=== PATIENT | female | born 1990 | race Caucasian/White ===

== ENCOUNTER 2023-05-20 05:20 | Inpatient (IN) | payer OTHER, SELFPAY ==
[2023-05-20] VITALS (21 sets, daily range): BP systolic 123–145; BP diastolic 64–94; PULSE 67–96; RESP 16–18; TEMP 36.6–36.8
[2023-05-20 06:00] LABS: Hematocrit 39.1 % (36.0-48.0); Hemoglobin 12.9 g/dL (12.0-16.0); Mean Corpuscular Hemoglobin 27.7 pg (26.7-34.0); Mean Corpuscular Volume 83.9 fL (81.0-99.0); Mean Platelet Volume 12.7 fL (9.5-13.5); Platelet Count 212 10^3/uL (150-450); Red Blood Count 4.66 10^6/uL (4.20-5.40); Red Cell Distribution Width 13.3 % (11.0-15.0); White Blood Count 8.2 10^3/uL (4.0-11.0)
[2023-05-20 06:19] LABS: Amphetamine Screen Urine NEGATIVE (NEGATIVE); Barbiturates Screen Urine NEGATIVE (NEGATIVE); Benzodiazepines Screen Urine NEGATIVE (NEGATIVE); Buprenorphine Screen Urine NEGATIVE (NEGATIVE); Cannabinoid Screen Urine NEGATIVE (NEGATIVE); Cocaine Screen Urine NEGATIVE (NEGATIVE); Methadone Screen Urine NEGATIVE (NEGATIVE); Methamphetamines Screen Urine NEGATIVE (NEGATIVE); Opiate Screen Urine NEGATIVE (NEGATIVE); Oxycodone Screen Urine NEGATIVE (NEGATIVE); Phencyclidine Screen Urine NEGATIVE (NEGATIVE); Tricyclic Antidepressant Urine NEGATIVE (NEGATIVE)
[2023-05-20] MEDS: 0.9 % SODIUM CHLORIDE 1,000 ML 1000 ML IV (06:22)
[2023-05-20] MEDS: OXYTOCIN 10 UNIT in 0.9 % SODIUM CHLORIDE 500 ML 6.012 UNIT IV (06:22)
--- NOTE | 2023-05-20 07:57 | W.PC.ACHO ---
Registration Status: ADM IN Primary Language: [place]ican Preferred Language: [place]ican Active Medications Report Given 0720 Generic Name Dose Route Start Last Admin Trade Name Marvq PRN Reason Stop Dose Admin Carboprost Tromethamine 250 mcg 05/20/23 05:24 Carboprost Tromethamine 250 Mcg/Ml 1 Ml Vial IM Q15M PRN Bleeding Sodium Chloride 1,000 mls @ 125 mls/hr 05/20/23 05:30 Sodium Chloride 0.9% 1,000 Ml IV .Q8H FADI Oxytocin 10 unit/ Sodium 501 mls @ 6.012 mls/hr 05/20/23 05:30 05/20/23 06:22 Chloride IV 2 milliunit/min Q24H FADI 6.012 mls/hr Administration 2 MILLIUNIT/MIN Lidocaine 5 ml 05/20/23 05:24 Lidocaine Viscous 2% 15 Ml Topical Solution TOPICAL DIRECTED PRN Pain Lidocaine 1 ml 05/20/23 05:24 Lidocaine Hcl 1% 200 Mg/20 Ml Mdv INJ DIRECTED PRN Pain Methylergonovine Maleate 0.2 mg 05/20/23 05:24 Methylergonovine Maleate 0.2 Mg Tablet PO Q4H PRN Uterine Contractility/Contract Methylergonovine Maleate 0.2 mg 05/20/23 05:24 Methylergonovine Maleate 0.2 Mg/Ml Ampule IM ONCE PRN Uterine Contractility/Contract Misoprostol 600 mcg 05/20/23 05:24 Misoprostol 100 Mcg Tablet PO ONCE PRN Uterine Bleeding Misoprostol 800 mcg 05/20/23 05:24 Misoprostol 100 Mcg Tablet SL ONCE PRN Uterine Bleeding Misoprostol 1,000 mcg 05/20/23 05:24 Misoprostol 100 Mcg Tablet MN ONCE PRN Uterine Bleeding Nalbuphine HCl 10 mg 05/20/23 05:24 Nalbuphine Hcl 10 Mg/Ml Ampule IV Q3H PRN Pain Ondansetron HCl 4 mg 05/20/23 05:24 Ondansetron Pf 4 Mg/2 Ml Vial IV Q6H PRN Nausea And Vomiting Ondansetron HCl 4 mg 05/20/23 05:24 Ondansetron 4 Mg Rapdis Tablet SL Q6H PRN Nausea And Vomiting Oxytocin 10 unit 05/20/23 05:24 Oxytocin 100 Unit/10 Ml Vial IM ONCE PRN Uterine Bleeding Diet Category Date Time Status Regular Consistency Diet Diet 05/20/23 Breakfast Active Consults Category Date Time Status Consult to Anesthesiology Routine Cons 05/20/23 Ordered IV Insertion/Site Date of IV Line Insertion [18g 05/20/23 left Forearm] IV Insertion Time [18g left 05:48 Forearm] Neurology Patient orientation (short person,place,time,situation list) [place] coma scale total score 15 Respiratory Oxygen Delivery Method Room Air Oxygen Delivery Method Room Air Oxygen Delivery Method Room Air Renal Bladder Pattern Continent
[2023-05-20] MEDS: NALBUPHINE HCL 10 MG/ML AMPULE IV (11:16)
[2023-05-20] MEDS: ONDANSETRON 4 MG RAPDIS TABLET SL (11:16)
--- NOTE | 2023-05-20 13:01 | PM.OBPRCVD ---
Procedure Intrapartal events: None Induction method: per pitocin protocol Delivery augmentation: rupture of membranes and pitocin Delivery monitor: external FHT and internal FHT Route of delivery: Episiotomy Description: none Laceration description: none Estimated blood loss (mL): 200 Anesthesia type: None Disposition: floor Delivery date: 05/20/23 Gender: female presentation: vertex Placental delivery description: Spontaneous cord description: 3 Vessels
[2023-05-20] MEDS: IBUPROFEN 600 MG TABLET PO ×2 (14:04→20:48)
[2023-05-20] MEDS: ACETAMINOPHEN 325 MG TABLET 650 MG PO ×2 (15:37→22:10)
--- NOTE | 2023-05-20 19:33 | W.PC.ACHO ---
Registration Status: ADM IN Primary Language: [place] Preferred Language: [place]serratian 0715- Report received from Anabel Hill RN. Active Medications Generic Name Dose Route Start Last Admin Trade Name Mitch PRN Reason Stop Dose Admin Acetaminophen 650 mg 05/20/23 13:02 05/20/23 15:37 Acetaminophen 325 Mg Tablet PO 650 mg Q6H PRN Administration Mild Pain Al Hydroxide/Mg Hydroxide 2,400 mg 05/20/23 13:02 Magnesium Hydroxide 2,400 Mg/10 Ml Oral.Susp PO Q6H PRN Dyspepsia Benzocaine/Menthol 1 applic 05/20/23 13:02 Benzocaine/Menthol 85 Gram Bottle TOPICAL Q3H PRN Pain Carboprost Tromethamine 250 mcg 05/20/23 05:24 Carboprost Tromethamine 250 Mcg/Ml 1 Ml Vial IM Q15M PRN Bleeding Docusate Sodium 100 mg 05/21/23 09:00 Docusate Sodium 100 Mg Capsule PO BID [facility] Sodium Chloride 1,000 mls @ 125 mls/hr 05/20/23 05:30 Sodium Chloride 0.9% 1,000 Ml IV .Q8H [facility] Oxytocin 10 unit/ Sodium 501 mls @ 6.012 mls/hr 05/20/23 05:30 05/20/23 10:00 Chloride IV 2 milliunit/min Q24H [facility] 6.012 mls/hr Infusion 2 MILLIUNIT/MIN Oxytocin 20 unit/ Sodium 1,002 mls @ 125 mls/hr 05/20/23 13:15 05/20/23 13:10 Chloride IV 05/20/23 21:14 125 mls/hr Q8H FADI 125 mls/hr Administration Oxytocin 20 unit/ Sodium 1,002 mls @ 125 mls/hr 05/20/23 13:15 Chloride IV 05/20/23 21:14 Q8H [facility] Protocol Ibuprofen 600 mg 05/20/23 13:02 05/20/23 14:04 Ibuprofen 600 Mg Tablet PO 600 mg Q6H PRN Administration Moderate Pain Lidocaine 5 ml 05/20/23 05:24 Lidocaine Viscous 2% 15 Ml Topical Solution TOPICAL DIRECTED PRN Pain Lidocaine 1 ml 05/20/23 05:24 Lidocaine Hcl 1% 200 Mg/20 Ml Mdv INJ DIRECTED PRN Pain Methylergonovine Maleate 0.2 mg 05/20/23 05:24 Methylergonovine Maleate 0.2 Mg Tablet PO Q4H PRN Uterine Contractility/Contract Methylergonovine Maleate 0.2 mg 05/20/23 05:24 Methylergonovine Maleate 0.2 Mg/Ml Ampule IM ONCE PRN Uterine Contractility/Contract Misoprostol 600 mcg 05/20/23 05:24 Misoprostol 100 Mcg Tablet PO ONCE PRN Uterine Bleeding Misoprostol 800 mcg 05/20/23 05:24 Misoprostol 100 Mcg Tablet SL ONCE PRN Uterine Bleeding Misoprostol 1,000 mcg 05/20/23 05:24 Misoprostol 100 Mcg Tablet AK ONCE PRN Uterine Bleeding Nalbuphine HCl 10 mg 05/20/23 05:24 05/20/23 11:16 Nalbuphine Hcl 10 Mg/Ml Ampule IV 10 mg Q3H PRN Administration Pain Ondansetron HCl 4 mg 05/20/23 05:24 Ondansetron Pf 4 Mg/2 Ml Vial IV Q6H PRN Nausea And Vomiting Ondansetron HCl 4 mg 05/20/23 05:24 05/20/23 11:16 Ondansetron 4 Mg Rapdis Tablet SL 4 mg Q6H PRN Administration Nausea And Vomiting Oxytocin 10 unit 05/20/23 05:24 Oxytocin 100 Unit/10 Ml Vial IM ONCE PRN Uterine Bleeding Senna 17.2 mg 05/20/23 20:00 Sennosides 8.6 Mg Tablet PO QHS PRN Constipation Temazepam 15 mg 05/20/23 20:00 Temazepam 15 Mg Capsule PO BEDTIME PRN Sleep Witch Bettye/Glycerin 1 each 05/20/23 13:02 Glycerin/Witch Bettye 1 Each Jar TOPICAL Q3H PRN Pain Diet Category Date Time Status Regular Consistency Diet Diet 05/20/23 Dinner Active Consults Category Date Time Status Consult to Anesthesiology Routine Cons 05/20/23 Ordered IV Insertion/Site Date of IV Line Insertion [18g 05/20/23 left Forearm] IV Insertion Time [18g left 05:48 Forearm] Neurology Patient orientation (short person,place,time,situation list) [place] coma scale total score 15 [place] coma scale total score 15 Respiratory Oxygen Delivery Method Room Air Oxygen Delivery Method Room Air Oxygen Delivery Method Room Air Cardiology Heart Sounds Regular Renal Bladder Pattern Continent Bladder Pattern Continent
[2023-05-21 01:40] VITALS: BP 130/76; PULSE 77; RESP 14; TEMP 36.2
[2023-05-21 01:43] VITALS: BP 130/76; PULSE 77
[2023-05-21 05:00] VITALS: RESP 16
[2023-05-21] MEDS: IBUPROFEN 600 MG TABLET PO ×2 (05:05→13:18)
[2023-05-21] MEDS: ACETAMINOPHEN 325 MG TABLET 650 MG PO (05:05)
[2023-05-21 05:08] VITALS: BP 127/74; PULSE 67
[2023-05-21 06:22] LABS: Basophils Absolute Auto 0.1 10^3/uL (0.0-0.1); Basophils Percent Auto 0.8 % (0.2-2.0); Eosinophils Absolute Auto 0.2 10^3/uL (0.0-0.7); Eosinophils Percent Auto 2.6 % (0.9-7.0); Hematocrit 34.2 % (36.0-48.0); Hemoglobin 11.3 g/dL (12.0-16.0); Immature Granulocytes Abs Auto 0.03 10^3/uL (0.00-0.03); Immature Granulocytes Pct Auto 0.3 % (0.0-0.5); Lymphocytes Absolute Auto 2.6 10^3/uL (1.2-3.8); Lymphocytes Percent Auto 29.1 % (20.5-60.0); Mean Corpuscular Hemoglobin 27.8 pg (26.7-34.0); Monocytes Absolute Auto 0.6 10^3/uL (0.3-0.8); Monocytes Percent Auto 6.7 % (1.7-12.0); Neutrophils Absolute Auto 5.4 10^3/uL (1.4-6.5); Neutrophils Percent Auto 60.5 % (43.0-75.0); Platelet Count 176 10^3/uL (150-450); Red Blood Count 4.07 10^6/uL (4.20-5.40); Red Cell Distribution Width 13.4 % (11.0-15.0); White Blood Count 8.9 10^3/uL (4.0-11.0)
[2023-05-21 09:30] VITALS: RESP 16; TEMP 36.7
[2023-05-21 09:34] VITALS: BP 121/75; PULSE 70
[2023-05-21] MEDS: DOCUSATE SODIUM 100 MG CAPSULE PO (09:54)
--- NOTE | 2023-05-21 15:14 | PM.OBPN ---
OB - PN: Subj Subjective Patient comments: no complaints Exam Constitutional Vital Signs - 24 hr 05/20/23 21:13 05/21/23 01:43 05/21/23 05:08 Temperature Pulse Rate 67 77 67 Respiratory Rate Blood Pressure 140/82 H 130/76 H 127/74 H Blood Pressure [Right Arm] 05/21/23 09:34 05/20/23 21:00 05/20/23 21:00 Temperature 97.8 F Pulse Rate 70 Respiratory Rate 16 16 Blood Pressure 121/75 H Blood Pressure [Right Arm] 05/21/23 01:40 05/21/23 01:40 05/21/23 05:00 Temperature 97.1 F L Pulse Rate 77 Respiratory Rate 14 14 16 Blood Pressure Blood Pressure [Right Arm] 130/76 H 05/21/23 09:30 Temperature 98.1 F Pulse Rate Respiratory Rate 16 Blood Pressure Blood Pressure [Right Arm] Documenting provider has reviewed patient's vital signs: yes Common normals: no apparent distress Respiratory Common normals: normal respiratory effort and clear to auscultation bilaterally Cardio Common normals: regular rate and regular rhythm GI Common normals: Normal to inspection, nondistended, normoactive bowel sounds present Extremity Common normals: no clubbing, cyanosis or edema and no calf tenderness Results Labs Labs: Short CBC 05/21/23 Range/Units 06:15 WBC 8.9 (4.0-11.0) 10^3/uL Hgb 11.3 L (12.0-16.0) g/dL Hct 34.2 L (36.0-48.0) % Plt Count 176 (150-450) 10^3/uL OB - PN: A/P Plan - Vaginal Delivery day: 1 Plan: routine care, discharge home and follow up 6 weeks Time Spent with Patient Time: Total time spent is greater than 50% in coordination of care (as documented) at patient's floor/unit and/or counseling patient: Total time spent with greater than 50% in coordination of care (as documented) at patient's floor/unit and/or counseling patient: less than 15 minutes
[2023-05-21] MEDS: ADACEL DIPH,PERTUSS(ACELL),TET VAC/PF 0.5 ML ADULT SYRINGE IM (15:28)
== END 2023-05-21 16:30 | disposition home or self-care (01) | DRG 807 ==
PROVIDERS: Admitting Provider Obstetrics & Gynecology; PCP Obstetrics & Gynecology; Visit Provider Obstetrics & Gynecology
DX: O80 Encounter for full-term uncomplicated delivery (principal); Z37.0 Single live birth; Z88.5 Allergy status to narcotic agent; Z3A.39 39 weeks gestation of pregnancy
CPT/HCPCS: 36415; 59050; 59410; 80307; 85025; 85027; 86850; 86900; 86901; 90471; 90715; 96374; 96375; 96376; J2300

== ENCOUNTER 2024-01-03 15:58 | Outpatient (OUT) | payer OTHER, SELFPAY ==
--- NOTE | 2024-01-03 16:01 | US_ITS ---
[address] [address] Patient Name: YOANA MARCELINO MRN: [id number] date: 1990 Sex: F Assigned Patient Location: US Current Patient Location: Accession/Order Number: [id number] Exam Date: 01/03/2024 16:02 Report Date: 01/06/2024 04:07 At the request of: LYLY QUESADA Procedure: US pelvis EXAMINATION: US pelvis HISTORY: abdominal mass, Left Lower Quadrant R19.04 ; palpable lump COMPARISON: Ultrasound pelvis 04/25/2021 TECHNIQUE: Transabdominal and/or transvaginal sonographic examination was performed as indicated by examination type. FINDINGS: UTERUS: Normal size and appearance. Uterus size: 7.9 x 2.9 x 5.5 cm ENDOMETRIUM: Normal homogeneous appearance. Endometrial thickness: 2 mm RIGHT OVARY: Normal size and appearance. Duplex Doppler demonstrates normal waveform and flow; resistive index 0.7. Ovary size: 3.4 x 2.1 x 1.7 cm LEFT OVARY: Normal size and appearance. Duplex Doppler demonstrates normal waveform and flow; resistive index 0.3. Ovary size: 2.7 x 1.7 x 1.7 cm CUL-DE-SAC: Unremarkable. No significant free fluid. BLADDER: Unremarkable. OTHER: None. US/US pelvis IMPRESSION: 1. Normal pelvic ultrasound. No abnormal or suspicious findings to account for patient's palpable lump. Electronically authenticated by: EARLE TERAN Date: 01/06/2024 04:07
== END 2024-01-03 15:59 | disposition home or self-care (01) ==
LOC: US 15:58
PROVIDERS: PCP Family Medicine; Visit Provider Family Medicine
DX: R19.04 Left lower quadrant abdominal swelling, mass and lump (principal)
CPT/HCPCS: 76856

== ENCOUNTER 2024-01-29 12:01 | Outpatient (OUT) | payer OTHER, SELFPAY ==
--- NOTE | 2024-01-29 12:04 | CT_ITS ---
[address] [address] Patient Name: YOANA MARCELINO MRN: [id number] date: 1990 Sex: F Assigned Patient Location: CT Current Patient Location: Accession/Order Number: [id number] Exam Date: 01/29/2024 13:15 Report Date: 01/30/2024 08:12 At the request of: KIM ARAMBULA Procedure: CT abdomen pelvis wo/w con EXAMINATION: CT abdomen pelvis wo/w con HISTORY: left lower quadrant abdominal mass R19.04 COMPARISON: 01/03/2024 ultrasound TECHNIQUE: Axial, Coronal, and Sagittal images were created without and with non-ionic intravenous contrast material. Dose reduction techniques were achieved by using automated exposure control and/or adjustment of mA and/or kV according to patient size and/or use of iterative reconstruction technique. FINDINGS: LUNG BASES: No visible pulmonary or pleural disease. LIVER: No enlargement, atrophy, abnormal density, or significant focal lesion. BILIARY: No dilatation or calcification. PANCREAS: No lesion, fluid collection, ductal dilatation, or atrophy. SPLEEN: No enlargement or focal lesion. ADRENALS: No mass or enlargement. KIDNEYS: No mass, obstruction, or calcification. BOWEL/MESENTERY: No visible mass, obstruction, or bowel wall thickening. Normal appendix AORTA/VASCULAR: No aneurysm or dissection. RETROPERITONEUM: No mass or adenopathy. LYMPH NODES: No adenopathy. URINARY BLADDER: No visible focal wall thickening, lesion, or calculus. PELVIC ORGANS: Hypervascular is uterus and adnexa, correlate with the menstrual cycle. Free pelvic fluid likely physiologic in amount ABDOMINAL WALL: Identified in the region of the patient's palpable abnormality demarcated with the BB marker is a focal subtle area of fat density measuring 3.0 x 0.9 cm best seen on axial image #100 possibly representing a lipoma BONES: No bony lesion or fracture. OTHER: Negative. CT/CT abdomen pelvis wo/w con IMPRESSION: Suspected subcutaneous lipoma corresponding to the patient's left lower quadrant palpable mass Electronically authenticated by: JIGNESH MOE Date: 01/30/2024 08:12
--- OUTSIDE RECORDS SUMMARY | 2024-01-29 12:07 | XMS_ITS | CCD ---
Author Name Unknown Address [address] [facility] [facility] [address] [place] [address] Organization [facility] Care Team Providers Care Wireline Supervisor Name Role Phone Anna Cuetoela Unavailable Lu Quesada Unavailable XU ., DR ALVAREZ Admitting Unavailable PAYAL, DR JIGNESH Rosa Consulting Unavailable XU ., DR ALVAREZ Attending Unavailable QUESADA, DR LU Baker Primary Care Unavailable XU ., DR ALVAREZ Consulting Unavailable XU ., DR ALVAREZ Admitting Unavailable XU ., DR ALVAREZ Attending Unavailable XU ., DR ALVAREZ Consulting Unavailable QUESADA, DR LU Baker Primary Care Unavailable PARUL, DR EARLE Nava Consulting Unavailable XU ., DR ALVAREZ Consulting Unavailable XU ., DR ALVAREZ Admitting Unavailable XU ., DR ALVAREZ Attending Unavailable QUESADA, DR LU Baker Primary Care Unavailable XU ., DR ALVAREZ Admitting Unavailable XU ., DR ALVAREZ Attending Unavailable QUESADA, DR LU Baker Primary Care Unavailable XU ., DR ALVAREZ Consulting Unavailable DIPAK, DR LU Baker Primary Care Unavailable [place], DR JIGNESH Rosa Consulting Unavailable XU ., DR ALVAREZ Admitting Unavailable XU ., DR ALVAREZ Attending Unavailable XU ., DR ALVAREZ Consulting Unavailable XU ., DR ALVAREZ Admitting Unavailable XU ., DR ALVAREZ Attending Unavailable XU ., DR ALVAREZ Consulting Unavailable DIPAK, DR LU Baker Primary Care Unavailable XU ., DR ALVAREZ Admitting Unavailable XU ., DR ALVAREZ Attending Unavailable XU ., DR ALVAREZ Consulting Unavailable DIPAK, DR LU Baker Primary Care Unavailable Jinny Sommers Unavailable Lu Quesada MD Primary Care Provider KIM MCNAIR Attending Unavailable Allergies Allergy Classification Reported Allergen(s) Allergy Type Date of Onset Reaction(s) Facility (11 sources) Codeine Drug Allergy 04-24-2023 Unknown [facility] Work Phone: (1 source) Codeine Drug Allergy 01-09-2016 [facility] Repository Medications Current Medications Medication Drug Class(es) Dates Sig (Normalized) Sig (Original) amoxicillin 875 mg / clavulanate 125 mg oral tablet (5 sources) Penicillin-class Antibacterial Amoxicillin-Pot Clavulanate 875-125 MG Oral for 7 Active b complex vitamins capsule (3 sources) take 1 capsule by mouth in the morning b complex vitamins capsule Take 1 capsule by mouth in the morning. 0 Active calcitriol 0.14430 mg oral capsule (3 sources) Vitamin D3 Analog take 1 capsule by mouth in the morning calcitriol (Rocaltrol) 0.25 MCG capsule Take 0.25 mcg by mouth in the morning. 0 Active calcium acetate 667 mg oral capsule (3 sources) calcium acetate (Phoslo) 667 MG capsule Take 500 mg by mouth in the morning and 500 mg at noon and 500 mg in the evening. Take with meals. 0 Active cefdinir 300 mg oral capsule (1 source) Cephalosporin Antibacterial Start: 11-22-2023 take 1 capsule by mouth every twelve hours Cefdinir 300 MG 1 Capsule Orally bid for 7 days Nov, Active [facility] Fluticasone Propionate 50 MCG/ACT (4 sources) [facility] Fluticasone Propionate 50 MCG/ACT USE 2 SPRAYS IN EACH NOSTRIL DAILY Nasally Once a day for 90 days Active Desiccated Beef Liver powder (3 sources) Desiccated Beef Liver powder fluticasone propionate 0.05 mg/actuat metered dose nasal spray (1 source) Corticosteroid Start: 11-15-2021 take 2 spray(s) nasal route once daily Fluticasone Propionate 50 MCG/ACT 2 sprays Nasally Once a day for 14 day(s) Nov, Active Magnesium glycinate (3 sources) MAGNESIUM GLYCINATE PO Take by mouth. 0 Active predniSONE 20 mg oral tablet (5 sources) Start: 11-15-2021 take 1 tablet by mouth every twelve hours predniSONE 20 MG 1 tablet Orally bid for 5 day(s) Nov, Active MV-Min-Fe Fum-FA-DHA ( 1 PO) (3 sources) MV-Min-Fe Fum-FA-DHA ( 1 PO) Take by mouth. 0 Active Completed/Discontinued Medications Medication Drug Class(es) Dates Sig (Normalized) Sig (Original) norethindrone 0.35 mg oral tablet (3 sources) Start: 09-20-2023 End: 09-19-2024 take 1 tablet by mouth in the morning norethindrone (Micronor) 0.35 MG tablet Indications: 6 weeks follow-up TAKE 1 TABLET (0.35 MG) BY MOUTH IN THE MORNING 84 tablet 4 09/20/2023 01/14/2024 Discontinued (Other) Problems Active Problems Problem Classification Problem Date Documented Da te Episodic/Chronic Abdominal pain (1 source) Pelvic and perineal pain; Translations: [Pelvic and perineal pain] Episodic Diabetes or abnormal glucose tolerance complicating ; childbirth; or the puerperium (4 sources) Abnormal glucose complicating ; Translations: [ABNORMAL GLUCOSE COMP ] Onset: 02-22-2023 Episodic Digestive congenital anomalies (3 sources) Personal history of other specified (corrected) congenital malformations of digestive system; Translations: [History of gastroschisis] Episodic Immunizations and screening for infectious disease (4 sources) Contact with and (suspected) exposure to other viral communicable diseases; Translations: [Encounter for screening for infections with a predominantly sexual mode of transmission] Onset: 11-15-2021 Resolved: 11-15-2021 Episodic Inflammatory diseases of female pelvic organs (1 source) Acute vaginitis; Translations: [Acute vaginitis] Episodic Menstrual disorders (5 sources) Irregular menstruation, unspecified; Translations: [Intermenstrual bleeding - irregular] Onset: 10-29-2022 Chronic Nonmalignant breast conditions (1 source) Mastitis without abscess Episodic Other complications of (3 sources) High risk ; Translations: [Supervision of high risk , unspecified, second trimester] Resolved: 12-30-2017 Episodic Other complications of (1 source) Mental disorders during , childbirth and the puerperium; Translations: [Other mental disorders complicating , unspecified trimester] Episodic Other complications of (1 source) Supervision of high risk with poor obstetric history; Translations: [Supervision of with other poor reproductive or obstetric history, unspecified trimester] Episodic Other ear and sense organ disorders (1 source) Acute actinic otitis externa; Translations: [Acute actinic otitis externa, right ear] Episodic Other gastrointestinal disorders (1 source) Left lower quadrant abdominal swelling, mass and lump Episodic Other gastrointestinal disorders (2 sources) Mass of left lower quadrant of abdomen; Translations: [Left lower quadrant abdominal swelling, mass and lump] 01-14-2024 Episodic Other and delivery including normal (14 sources) Encounter for supervision of normal , unspecified, third trimester; Translations: [Encounter for supervision of normal , unspecified, unspecified trimester] Onset: 01-03-2023 Resolved: 09-23-2019 Episodic Other upper respiratory infections (1 source) Chronic sinusitis; Translations: [Chronic sinusitis, unspecified] Chronic Other upper respiratory infections (2 sources) Acute sinusitis, unspecified; Translations: [Acute upper respiratory infection] Onset: 11-15-2021 Resolved: 11-15-2021 Episodic Otitis media and related conditions (3 sources) Acute secretory otitis media; Translations: [Other acute nonsuppurative otitis media, right ear] Onset: 05-15-2016 Resolved: 09-23-2019 Episodic Residual codes; unclassified (1 source) Gestation period, 38 weeks; Translations: [38 weeks gestation of ] Episodic Residual codes; unclassified (1 source) Gestation period, 34 weeks; Translations: [34 weeks gestation of ] Episodic Residual codes; unclassified (1 source) Gestation period, 36 weeks; Translations: [36 weeks gestation of ] Episodic Residual codes; unclassified (1 source) Gestation period, 30 weeks; Translations: [30 weeks gestation of ] Episodic Residual codes; unclassified (1 source) Gestation period, 32 weeks; Translations: [32 weeks gestation of ] Episodic Residual codes; unclassified (1 source) Gestation period, 25 weeks; Translations: [25 weeks gestation of ] Episodic Residual codes; unclassified (1 source) Gestation period, 28 weeks; Translations: [28 weeks gestation of ] Episodic Residual codes; unclassified (1 source) FH: Congenital anomaly; Translations: [Family history of other congenital malformations, deformations and chromosomal abnormalities] Episodic Residual codes; unclassified (1 source) Gestation period, 21 weeks; Translations: [21 weeks gestation of ] Episodic Syncope (1 source) Syncope and collapse; Translations: [Syncope and collapse] Episodic Past or Other Problems Problem Classification Problem Date Documented Date Episodic/Chronic Malaise and fatigue (1 source) Fatigue; Translations: [Other fatigue] Onset: 03-16-2019 Resolved: 09-23-2019 Episodic Other complications of (1 source) Supervision of high risk with poor reproductive history; Translations: [Supervision of with other poor reproductive or obstetric history, third trimester] Resolved: 12-30-2017 Episodic Other complications of (1 source) Complication occurring during ; Translations: [Other specified related conditions, second trimester] Resolved: 09-23-2019 Episodic Other complications of (1 source) Maternal care for excessive growth, unspecified trimester, not applicable or unspecified; Translations: [Maternal care for excessive growth, unspecified trimester, not applicable or unspecified] Resolved: 01-25-2020 Episodic Other female genital disorders (1 source) Other specified noninflammatory disorders of vagina; Translations: [OTH SPEC NONINFLAMMATORY D/O VAGINA] Onset: 01-30-2023 Episodic Other screening for suspected conditions (not mental disorders or infectious disease) (10 sources) Encounter for screening for diabetes mellitus; Translations: [Encounter for other screening follow-up] Onset: 01-28-2023 Resolved: 01-20-2020 Episodic Residual codes; unclassified (1 source) Gestation period, 37 weeks; Translations: [37 weeks gestation of ] Resolved: 01-20-2020 Episodic Residual codes; unclassified (1 source) Gestation period, 13 weeks; Translations: [13 weeks gestation of ] Resolved: 09-23-2019 Episodic Residual codes; unclassified (1 source) Gestation period, 17 weeks; Translations: [17 weeks gestation of ] Resolved: 09-23-2019 Episodic Residual codes; unclassified (1 source) Other specified health status; Translations: [Health status] Resolved: 09-23-2019 Episodic Residual codes; unclassified (3 sources) H/O: stillbirth; Translations: [Personal history of other complications of , childbirth and the puerperium] Onset: 05-09-2023 Resolved: 05-09-2023 05-09-2023 Episodic Unclassified (1 source) Supervision of high risk ; Translations: [Supervision of other high-risk ] Unclassified (1 source) Acute candidiasis of vulva and vagina; Translations: [Acute candidiasis of vulva and vagina] Results Test Name Value Interpretation Reference Range Facility GROUP B STREP CULTUREon 04-02 S. agalactiae Ag Ql (Unsp spec) Culture Observations: NEGATIVE FOR GROUP B STREPTOCOCCUS. Normal [facility] Comment on above: Performed By: #### H BSANS #### [facility] [address] [place] [address] Dr. Cosme Hinojosa GTT 3 HR PREGon 02-22-2023 Glucose [Mass/Vol] 100 mg/dL Normal 74-106 [facility] Comment on above: Performed By: #### G TT3P #### [facility] [address] [place] [address] Dr. Cosme Hinojosa Glucose [Mass/Vol] 175 mg/dL Normal [facility] Comment on above: Performed By: #### G TT3P #### [facility] [address] [place] [address] Dr. Cosme Hinojosa Glucose [Mass/Vol] 129 mg/dL Normal [facility] Comment on above: Performed By: #### G TT3P #### [facility] [address] [place] [address] Dr. Cosme Hinojosa Glucose [Mass/Vol] 116 mg/dL Normal [facility] Comment on above: Performed By: #### G TT3P #### [facility] [address] [place] [address] Dr. Cosme Hinojosa POINT OF CARE GLUCOSEon 01-31 Glucose [Mass/Vol] 107 mg/dL Critically high 74-106 [facility] Comment on above: Performed By: #### H BSANS #### [facility] [address] [place] [address] Dr. Cosme Hinojosa CBC AUTO DIFFon 02-16-2023 BASO # 0.0 103/ul Normal 0.0-0.1 [facility] Comment on above: Performed By: #### C BC #### [facility] [address] [place] [address] Dr. Cosme Hinojosa Basophils/100 WBC (Bld) 0.3 % Normal 0.2-2.0 [facility] Comment on above: Performed By: #### C BC #### [facility] [address] [place] [address] Dr. Cosme Hinojosa EO # 0.2 103/ul Normal 0.0-0.7 [facility] Comment on above: Performed By: #### C BC #### [facility] [address] [place] [address] Dr. Cosme Hinojosa Eosinophils/100 WBC (Bld) 3.2 % Normal 0.9-7.0 [facility] Comment on above: Performed By: #### C BC #### [facility] [address] [place] [address] Dr. Cosme Hinojosa Erythrocyte distribution width (RBC) [Ratio] 13.1 % Normal 11.0-15.0 [facility] Comment on above: Performed By: #### C BC #### [facility] [address] [place] [address] Dr. Cosme Hinojosa Hematocrit (Bld) [Volume fraction] 35.8 % Critically low 36.0-48.0 [facility] Comment on above: Performed By: #### C BC #### [facility] [address] [place] [address] Dr. Cosme Hinojosa Hemoglobin (Bld) [Mass/Vol] 11.9 g/dL Critically low 12.0-16.0 [facility] Comment on above: Performed By: #### C BC #### [facility] [address] [place] [address] Dr. Cosme Hinojosa IG # 0.02 10e3/ul Normal 0.00-0.03 [facility] Comment on above: Performed By: #### C BC #### [facility] [address] [place] [address] Dr. Cosme Hinojosa IG % 0.3 % Normal 0.0-0.5 [facility] Comment on above: Performed By: #### C BC #### [facility] [address] [place] [address] Dr. Cosme Hinojosa LYMPH # 1.2 103/ul Normal 1.2-3.8 [facility] Comment on above: Performed By: #### C BC #### [facility] [address] [place] [address] Dr. Cosme Hinojosa Lymphocytes/100 WBC (Bld) 21.1 % Normal 20.5-60.0 [facility] Comment on above: Performed By: #### C BC #### [facility] [address] [place] [address] Dr. Cosme Hinojosa MANUAL DIFF REQ NO Normal [facility] Comment on above: Performed By: #### C BC #### [facility] [address] [place] [address] Dr. Cosme Hinojosa MCH (RBC) [Entitic mass] 28.5 pg Normal 26.7-34.0 [facility] Comment on above: Performed By: #### C BC #### [facility] [address] [place] [address] Dr. Cosme Hinojosa MCHC (RBC) [Mass/Vol] 33.2 g/dL Normal 29.9-35.2 [facility] Comment on above: Performed By: #### C BC #### [facility] [address] [place] [address] Dr. Cosme Hinojosa MCV (RBC) [Entitic vol] 85.9 fL Normal 81.0-99.0 [facility] Comment on above: Performed By: #### C BC #### [facility] [address] [place] [address] Dr. Cosme Hinojosa MONO # 0.4 103/ul Normal 0.3-0.8 [facility] Comment on above: Performed By: #### C BC #### [facility] [address] [place] [address] Dr. Cosme Hinojosa Monocytes/100 WBC (Bld) 6.1 % Normal 1.7-12.0 [facility] Comment on above: Performed By: #### C BC #### [facility] [address] [place] [address] Dr. Cosme Hinojosa NEUT # 4.1 103/ul Normal 1.4-6.5 [facility] Comment on above: Performed By: #### C BC #### [facility] [address] [address] [address] Cosme Hinojosa Neutrophils/100 WBC (Bld) 69.0 % Normal 43.0-75.0 [facility] Comment on above: Performed By: #### C BC #### [facility] [address] [address] [address] Cosme Hinojosa Platelet mean volume (Bld) [Entitic vol] 11.1 fL Normal 9.5-13.5 [facility] Comment on above: Performed By: #### C BC #### [facility] [address] [place] [address] Dr. Cosme Hinojosa PLT 206 103/ul Normal 150-450 [facility] Comment on above: Performed By: #### C BC #### [facility] [address] [place] [address] Dr. Cosme Hinojosa RBC 4.17 106/ul Critically low 4.20-5.40 [facility] Comment on above: Performed By: #### C BC #### [facility] [address] [place] [address] Dr. Cosme Hinojosa WBC 5.9 103/ul Normal 4.0-11.0 [facility] Comment on above: Performed By: #### C BC #### [facility] [address] [place] [address] Dr. Cosme Hinojosa GLUCOSE - 1HRon 02-16-2023 Glucose [Mass/Vol] 148 mg/dL Critically high 74-106 [facility] Comment on above: Performed By: #### H BSANS #### [facility] [address] [address] [address] Cosme Hinojosa US PREG INCOMPLETE ANATOMYon 02-16-2023 US PREG INCOMPLETE ANATOMY EXAMINATION: US PREG INCOMPLETE ANATOMY HISTORY: screening COMPARISON: 01/03/2023 FINDINGS: position: Breech presentation, longitudinal lie Amniotic fluid volume: Subjectively normal Heart rate: 140 bpm Normal observed anatomy: Three-vessel cord, four-chamber heart, RVOT, LVOT Clinical age: 26 weeks 3 days Clinical KATY: 05/22/2023 IMPRESSION: Normal observed anatomy Electronically authenticated by: JIGNESH MOE Date: 2023-02-16 11:40 Normal [facility] PAP ACOG PANEL 2: 30 to 65on 02-04-2023 . . Normal [facility] Comment on above: Result Comment: Perf ormed at: WB Performed By: #### [id number] #### [facility] [address] [place] [address] Dr. Cosme Hinojosa Age Gdln ACOG Testing 30-65 Normal [facility] Comment on above: Performed By: #### [id number] #### [facility] [address] [place] [address] Dr. Cosme Hinojosa DIAGNOSIS: Comment Normal [facility] Comment on above: Result Comment: NEGA TIVE FOR INTRAEPITHELIAL LESION OR MALIGNANCY. Performed at: WB Performed By: #### [id number] #### [facility] [address] [place] [address] Dr. Cosme Hinojosa HPV Aptima Negative Normal Negative [facility] Comment on above: Result Comment: This nucleic acid amplification test detects fourteen high-risk HPV types (16,18,31,33,35,39,45,51,52,56,58,59,66,68) without differentiation. Performed at: =G Performed By: #### 4 [id number] #### [facility] [address] [place] [address] Dr. Cosme Hinojosa HPV Genotype Reflex Comment Normal [facility] Comment on above: Result Comment: Crit eria not met, HPV Genotype not performed. Performed at: WB Performed By: #### [id number] #### [facility] [address] [address] [address] Cosme Hinojosa Methodology: Comment [facility] Comment on above: Result Comment: This liquid based ThinPrep(R) pap test was screened with the use of an image guided system. Performed at: WB Performed By: #### [id number] #### [facility] [address] [place] [address] Dr. Cosme Hinojosa Note: Comment Normal [facility] Comment on above: Result Comment: The Pap smear is a screening test designed to aid in the detection of premalignant and malignant conditions of the uterine cervix. It is not a diagnostic procedure and should not be used as the sole means of detecting cervical cancer. Both false-positive and false-negative reports do occur. . Performed at: WB Performed By: #### [id number] #### [facility] [address] [place] [address] Dr. Cosme Hinojosa Performed by: Comment Normal [facility] Comment on above: Result Comment: Abner Gaston, Telephonic Nurse Case Manager (ASCP) Performed at: WB Performed By: #### [id number] #### [facility] [address] [place] [address] Dr. Cosme Hinojosa Specimen adequacy: Comment Normal [facility] Comment on above: Result Comment: Sati sfactory for evaluation. No endocervical component is identified. Performed at: WB Performed By: #### [id number] #### [facility] [address] [place] [address] Dr. Cosme Hinojosa CHLAMYDIA/GONOCOCCUS LEWIS (SW AB/URINE/PAPon 01-31-2023 Chlamydia trachomatis, LEWIS Negative Normal Negative [facility] Comment on above: Performed By: #### H BSANS #### [facility] [address] [place] [address] Dr. Cosme Hinojosa Neisseria gonorrhoeae, LEWIS Negative Normal Negative [facility] Comment on above: Performed By: #### H BSANS #### [facility] [address] [place] [address] Dr. Cosme Hinojosa VAGINITIS/VAGINOSIS DNA PROB Josh 01-30-2023 Emeli species Negative Normal Negative [facility] Comment on above: Performed By: #### V AGINT #### [facility] [address] [place] [address] Dr. Cosme Hinojosa Gardnerella vaginalis Positive Abnormal Negative [facility] Comment on above: Performed By: #### V AGINT #### [facility] [address] [place] [address] Dr. Cosme Hinojosa Trichomonas vaginalis Negative Normal Negative [facility] Comment on above: Performed By: #### V AGINT #### [facility] [address] [place] [address] Dr. Cosme Hinojosa US PREG ANATOMY SINGLEon US PREG ANATOMY SINGLE EXAMINATION: US PREG ANATOMY SINGLE HISTORY: anatomy study COMPARISON: No relevant comparison available. TECHNIQUE: Transabdominal sonographic examination was performed for obstetrical and evaluation. FINDINGS: Number: 1 Heart Rate: 149.0 bpm H.B. /min position: Variable Amniotic Fluid Volume: Subjectively normal Placental Location: Posterior. Placental edge 3.6 cm levels. Placental grade 0 Cervix Length: 4.7 cm, closed Normally visualized anatomy: Cerebellum, choroid plexus, cisterna magna, lateral cerebral ventricles, orbits, midline falx, hard palate, stomach, kidneys, bladder, umbilical cord insertion into the abdomen, cervical spine, thoracic spine, lumbar spine, sacral spine, right upper extremity, left upper extremity, right lower extremity, left lower extremity Suboptimally, nonvisualized anatomy: Four-chamber heart, RVOT, LVOT and three-vessel cord BIOMETRY: BPD: 4.6 cm 20 weeks 0 days , 41% HC: 17.6 cm 20 weeks 0 days, 30% AC: 14.6 cm 19 weeks 6 days, 36% FL: 3.5 cm 21 weeks 0 days, 71% EFW:348.2 grams; 12 ounces, 57% FL/AC: 23.8 FL/BPD: 75.5 HC/AC: 1.2 GESTATIONAL AGE: Age by EDC: 20 weeks 1 days KATY by EDC: 05/22/2023 Age by current US: 20 weeks 2 days KATY by current US: 05/21/2023 IMPRESSION: Suboptimal visualization is detailed above, otherwise normal anatomy scan *Reference: [employer] Practice Guideline for the performance of Obstetric Ultrasound Examinations, September 01, 2007. Electronically authenticated by: JIGNESH MOE Date: 2023-01-03 17:10 Normal [facility] RUBELLA AB IGGon 11-01-2022 Rubella Antibodies, IgG 1.36 index Normal Immune >0.99 [facility] Comment on above: Result Comment: Non- immune <0.90 Equivocal 0.90 - 0.99 Immune >0.99 Performed By: #### R UBIGG #### [facility] [address] [address] [address] Cosme Hinojosa HEP B SURFACE ANTIGEN SCREEN on 10-30-2022 HBsAg Screen Negative Normal Negative [facility] Comment on above: Performed By: #### H BSANS #### [facility] [address] [address] [address] Cosme Hinojosa HEPATITIS C VIRUS AB W/ REFL EX QUANTon 10-30-2022 HCV AB 0.4 s/co ratio Normal 0.0-0.9 [facility] Comment on above: Performed By: #### H BSANS #### [facility] [address] [place] [address] Dr. Cosme Hinojosa Interpretation: Comment Normal [facility] Comment on above: Result Comment: Nega tive Not infected with HCV, unless recent infection is suspected or other evidence exists to indicate HCV infection. Performed By: #### H BSANS #### [facility] [address] [place] [address] Dr. Cosme Hinojosa HIV 1 AND 2 WITH REFLEXon HIV Screen 4th Generation wRfx Non-Reactive Normal Non Reactive [facility] Comment on above: Result Comment: HIV Negative HIV-1/HIV-2 antibodies and HIV-1 p24 antigen were NOT detected. There is no laboratory evidence of HIV infection. Performed By: #### H IV12 #### [facility] [address] [place] [address] Dr. Cosme Hinojosa RPR QUANTon 10-30-2022 Rapid Plasma Reagin, Quant Non-Reactive Normal NonRea<1:1 [facility] Comment on above: Result Comment: Plea se Note: This test does not meet current guidelines for screening and diagnosis of syphilis. This test is intended for following treatment response in patients being treated for syphilis infection. To screen for syphilis infection, a reflex cascade that includes both RPR and a treponema-specific assay should be utilized, such as Treponema pallidum (Syphilis) Screening Reagan (576304) or Rapid Plasma Reagin (RPR) Test With Reflex to Quantitative RPR and Confirmatory Treponema pallidum Antibodies (584620). Performed By: #### R PRQ #### [facility] [address] [address] [address] Cosme Hinojosa CBC AUTO DIFFon 10-29-2022 BASO # 0.1 103/ul Normal 0.0-0.1 [facility] Comment on above: Performed By: #### C BC #### [facility] [address] [place] [address] Dr. Cosme Hinojosa Basophils/100 WBC (Bld) 1.0 % Normal 0.2-2.0 [facility] Comment on above: Performed By: #### C BC #### [facility] [address] [place] [address] Dr. Cosme Hinojosa EO # 0.5 103/ul Normal 0.0-0.7 [facility] Comment on above: Performed By: #### C BC #### [facility] [address] [place] [address] Dr. Cosme Hinojosa Eosinophils/100 WBC (Bld) 8.2 % Critically high 0.9-7.0 [facility] Comment on above: Performed By: #### C BC #### [facility] [address] [place] [address] Dr. Cosme Hinojosa Erythrocyte distribution width (RBC) [Ratio] 12.6 % Normal 11.0-15.0 [facility] Comment on above: Performed By: #### C BC #### [facility] [address] [place] [address] Dr. Cosme Hinojosa Hematocrit (Bld) [Volume fraction] 39.4 % Normal 36.0-48.0 [facility] Comment on above: Performed By: #### C BC #### [facility] [address] [place] [address] Dr. Cosme Hinojosa Hemoglobin (Bld) [Mass/Vol] 13.4 g/dL Normal 12.0-16.0 [facility] Comment on above: Performed By: #### C BC #### [facility] [address] [place] [address] Dr. Cosme Hinojosa IG # 0.02 10e3/ul Normal 0.00-0.03 [facility] Comment on above: Performed By: #### C BC #### [facility] [address] [place] [address] Dr. Cosme Hinojosa IG % 0.3 % Normal 0.0-0.5 [facility] Comment on above: Performed By: #### C BC #### [facility] [address] [place] [address] Dr. Cosme Hinojosa LYMPH # 1.6 103/ul Normal 1.2-3.8 [facility] Comment on above: Performed By: #### C BC #### [facility] [address] [place] [address] Dr. Cosme Hinojosa Lymphocytes/100 WBC (Bld) 27.7 % Normal 20.5-60.0 [facility] Comment on above: Performed By: #### C BC #### [facility] [address] [place] [address] Dr. Cosme Hinojosa MANUAL DIFF REQ NO Normal [facility] Comment on above: Performed By: #### C BC #### [facility] [address] [place] [address] Dr. Cosme Hinojosa MCH (RBC) [Entitic mass] 28.0 pg Normal 26.7-34.0 [facility] Comment on above: Performed By: #### C BC #### [facility] [address] [place] [address] Dr. Cosme Hinojosa MCHC (RBC) [Mass/Vol] 34.0 g/dL Normal 29.9-35.2 [facility] Comment on above: Performed By: #### C BC #### [facility] [address] [place] [address] Dr. Cosme Hinojosa MCV (RBC) [Entitic vol] 82.4 fL Normal 81.0-99.0 [facility] Comment on above: Performed By: #### C BC #### [facility] [address] [place] [address] Dr. Cosme Hinojosa MONO # 0.4 103/ul Normal 0.3-0.8 [facility] Comment on above: Performed By: #### C BC #### [facility] [address] [place] [address] Dr. Cosme Hinojosa Monocytes/100 WBC (Bld) 6.3 % Normal 1.7-12.0 [facility] Comment on above: Performed By: #### C BC #### [facility] [address] [place] [address] Dr. Cosme Hinojosa NEUT # 3.3 103/ul Normal 1.4-6.5 [facility] Comment on above: Performed By: #### C BC #### [facility] [address] [place] [address] Dr. Cosme Hinojosa Neutrophils/100 WBC (Bld) 56.5 % Normal 43.0-75.0 [facility] Comment on above: Performed By: #### C BC #### [facility] [address] [place] [address] Dr. Cosme Hinojosa Platelet mean volume (Bld) [Entitic vol] 11.1 fL Normal 9.5-13.5 [facility] Comment on above: Performed By: #### C BC #### [facility] [address] [place] [address] Dr. Cosme Hinojosa PLT 258 103/ul Normal 150-450 [facility] Comment on above: Performed By: #### C BC #### [facility] [address] [place] [address] Dr. Cosme Hinojosa RBC 4.78 106/ul Normal 4.20-5.40 [facility] Comment on above: Performed By: #### C BC #### [facility] [address] [place] [address] Dr. Cosme Hinojosa WBC 5.8 103/ul Normal 4.0-11.0 [facility] Comment on above: Performed By: #### C BC #### [facility] [address] [place] [address] Dr. Cosme Hinojosa CULTURE URINEon 10-29-2022 CULTURE URINE Culture Observations: LIGHT GROWTH OF MIXED GENITAL ARNAV. NO POTENTIAL PATHOGENS SEEN. Normal [facility] Comment on above: Performed By: #### U RCX #### [facility] [address] [address] [address] Cosme Hinojosa GLYCOHEMOGLOBIN A1Con 2021 ADA RECOMMENDATION SEE BELOW Normal [facility] Comment on above: Result Comment: ADA RECOMMENDED LIMIT 4.0 - 6.0 ADA THERAPEUTIC TARGET < 7.0 ACTION SUGGESTED > 7.0 Performed By: #### H BSANS #### [facility] [address] [address] [address] Cosme Hinojosa Glucose [Mass/Vol] 103 mg/dL Normal [facility] Comment on above: Performed By: #### H BSANS #### [facility] [address] [address] [address] Cosme Hinojosa HbA1c (Bld) [Mass fraction] 5.2 % Normal 4.5-6.2 [facility] Comment on above: Performed By: #### H BSANS #### [facility] [address] [address] [address] Cosme Hinojosa TYPE AND SCREENon 10-29-2022 TYPE AND SCREEN Negative Normal [facility] Comment on above: Performed By: #### H BSANS #### [facility] [address] [address] [address] Cosme Hinojosa US PREG TVon 10-12-2022 US PREG TV EXAMINATION: US PREG TV HISTORY: Missed period COMPARISON: No relevant comparison available. FINDINGS: GESTATIONAL SAC: Present and normal appearing. YOLK SAC: Present and normal appearing. POLE: Present and normal appearing. CARDIAC: Present. UTERUS: Normal size and appearance. OVARIES: Right: Corpus lutein cyst. Left: Normal. CERVIX: 3.7 cm in length and closed. CUL-DE-SAC: Normal. OTHER: None. AGE BY LMP: 9 weeks 0 days KATY BY LMP: 05/17/2023 AGE BY US CRL: 8 weeks 2 days KATY BY US CRL: 05/22/2023 IMPRESSION: 1. Single live intrauterine . Electronically authenticated by: EARLE TERAN Date: 2022-10-12 17:24 Normal [facility] COVID Quick Testingon 2020 Result Negative [facility] Other Vital Signs Date Time Vital Sign Value Performing Clinician Facility 01-14-2024 14:23-0500 Body mass index (BMI) [Ratio] 30.25 kg/m2 Kim Xu DO Work Phone: [facility] 01-14-2024 14:23-0500 Body weight 85 kg Kim Xu DO Work Phone: [facility] 01-14-2024 14:23-0500 Diastolic blood pressure 74 mm[Hg] Kim Xu DO Work Phone: [facility] 01-14-2024 14:23-0500 Systolic blood pressure 112 mm[Hg] Kim Xu DO Work Phone: [facility] 12-24-2023 11:00-0500 Body height 165.1 cm Lu Quesada Other [facility] Other 12-24-2023 11:00-0500 Body mass index (BMI) [Ratio] 31.88 kg/m2 Lu Quesdaa Other [facility] Other 12-24-2023 11:00-0500 Body weight 86.91 kg Lu Quesada Other [facility] Other 12-24-2023 11:00-0500 Diastolic blood pressure 80 mm[Hg] Lu Quesada Other [facility] Other 12-24-2023 11:00-0500 Systolic blood pressure 115 mm[Hg] Lu Quesada Other [facility] Other 11-22-2023 09:45-0500 Body height 165.1 cm Jinny Sommers Other [facility] Other 11-22-2023 09:45-0500 Body mass index (BMI) [Ratio] 32.11 kg/m2 Jinny Sommers Other [facility] Other 11-22-2023 09:45-0500 Body weight 87.54 kg Jinny Bermudezericka Other [facility] Other 11-22-2023 09:45-0500 Diastolic blood pressure 78 mm[Hg] Jinny Matthieu Other [facility] Other 11-22-2023 09:45-0500 SaO2% (BldA) [Mass fraction] 99 % Jinny Floresjohnathan Other [facility] Other 11-22-2023 09:45-0500 Systolic blood pressure 122 mm[Hg] Jinny Wallacearpit Other [facility] Other 11-15-2021 14:30-0500 Body height 165.1 cm Zoila Lopezmond Other [facility] Other 11-15-2021 14:30-0500 Body mass index (BMI) [Ratio] 29.12 kg/m2 Zoila Lopezmond Other [facility] Other 11-15-2021 14:30-0500 Body temperature 98.3 [degF] Zoila Nory Other [facility] Other 11-15-2021 14:30-0500 Body weight 79.38 kg Zoila Nory Other [facility] Other 11-15-2021 14:30-0500 Respiratory rate 18 /min Zoila Nory Other [facility] Other 11-15-2021 14:30-0500 SaO2% (BldA) [Mass fraction] 99 % Zoila Cueto Other [facility] Other Encounters Encounter Date Encounter Type Care Provider Facility Start: 01-14-2024 End: 01-14-2024 ambulatory KIM MCNAIR Not Available Start: 01-14-2024 End: 01-14-2024 Office outpatient visit 15 minutes Kim Xu DO Work Phone: [facility] Comment on above: Left lower quadrant abdominal mass Start: 01-13-2024 Chart abstracting Kim Xu DO Work Phone: [facility] Start: 01-06-2024 End: 01-06-2024 ambulatory Lu Quesada Other [facility] Other Start: 01-06-2024 Telephone encounter Lu Quesada [facility] Start: 12-24-2023 End: 12-24-2023 ambulatory Lu Quesada Other [facility] Other Start: 12-24-2023 Encounter for genera l adult medical examination without abnormal findings Lu Quesada [facility] Start: 12-24-2023 Periodic preventive med est patient 18-39 yrs Lu Quesada [facility] Start: 11-22-2023 End: 11-22-2023 ambulatory Jinny Sommers Other [facility] Other Start: 11-22-2023 Office outpatient vi sit 15 minutes Jinny Sommers [facility] Start: 04-25-2023 End: 04-25-[address] KIM MCNAIR . Facility:[facility] Start: 02-22-2023 End: 02-23-[address] KIM MCNAIR . Facility:[facility] Start: 02-16-2023 End: 02-17-[address] LU QUESADA Facility:[facility] Start: 02-15-2023 End: 02-15-2023 ambulatory Lu Quesada Other [facility] Other Start: 02-15-2023 Telephone encounter Lu Quesada [facility] Start: 02-13-2023 End: 02-13-2023 ambulatory Lu Quesada Other [facility] Other Start: 02-13-2023 Telephone encounter Lu Quesada [facility] Start: 02-01-2023 End: 02-01-2023 ambulatory Lu Quesada Other [facility] Other Start: 02-01-2023 Telephone encounter Lu Quesada [facility] Start: 01-30-2023 End: 01-30-2023 ambulatory Lu Quesada Other [facility] Other Start: 01-30-2023 Telephone encounter Lu Quesada [facility] Start: 01-28-2023 End: 01-28-[address] KIM MCNAIR . Facility:[facility] Start: 01-03-2023 End: 01-04-[address] KIM MCNAIR . Facility:[facility] Start: 10-29-2022 End: 10-30-[address] KIM MCNAIR . Facility:[facility] Start: 10-12-2022 End: 10-13-[address] KIM MCNAIR . Facility:[facility] Start: 11-15-2021 (URG) Urgent Care Visit Zoila colon [facility] Start: 11-15-2021 End: 11-15-2021 ambulatory Zoila Cueto Other [facility] Other Start: 10-09-2021 End: 10-09-2021 Gynecological examination normal Jinny Sommers Other [facility] Other Procedures Date Procedure Procedure Detail Performing Clinician Start: 12-06-2017 End: 09-23-2019 General examination of patient Jinny Sommers Other End: 12-30-2017 screening Jinny Sommers Other End: 10-09-2021 Contraception care education Jinny Wallacearpit Other Depression screening Fito nava Matthieu Other Diabetes mellitus screening Jinny Matthieu Other visit Jinny Wallace arpit Other Removal of intrauter ine device Jinny Wallacearpit Other Routine care Tomeka Sommers Other Plan of Treatment Date Care Activity Detail Author Start: 03-02-2024 End: 03-02-2024 Patient encounter procedure 03/02/2024 10:40 AM EDT Office Visit [facility] [address] [place] [id number] Kim Mcnair, DO [address] [place] [address] [facility] Start: 02-03-2024 End: 02-03-2024 Patient encounter procedure 02/03/2024 9:30 AM EST Procedure Visit [facility] [address] [place] [id number] Kim Mcnair, DO [address] [place] [address] [facility] Start: 01-14-2024 End: 01-14-2024 Patient encounter procedure 01/14/2024 2:10 PM EST Office Visit [facility] [address] [place] [id number] Kmi Mcnair, DO [address] [place] [address] [facility] Start: 01-14-2024 End: 01-14-2025 CT Abdomen and Pelvis WO and W contrast IV CT abdomen pelvis w and wo IV contrast Imaging Routine Left lower quadrant abdominal mass Expected: 01/14/2024, Expires: 01/14/2025 [facility] Work Phone: Comment on above: Expected: 01/14/2024 , Expires: 01/14/2025 Payers Date Payer Category Payer Unknown [employer] [id number] 2023-Present [address] [address] [place] [address] [id number] 1988 Unknown [id number] 1988 Unknown [id number] 1988 Unknown [id number] 1988 Unknown [id number] 1988 Unknown [id number] 1988 Unknown [id number] 1988 Unknown [id number] 1988 Unknown [id number] 9 1959 Unknown [id number] 1959 Unknown [id number] Unknown [id number] Social History Date Type Detail Facility Unknown if ever smoked [facility] Other Start: 05-13-2023 End: 08-26-2023 Sex Assigned At [employer] Other Start: 05-13-2023 Tobacco smoking status NHIS Never smoked tobacco [facility] Start: 05-13-2023 Tobacco use and exposure Smokeless tobacco non-user [facility] Start: 01-13-2024 End: 01-14-2024 Alcohol intake Lifetime non-drinker (finding) [facility] Start: 05-13-2023 End: 08-26-2023 History of Social function [facility] Start: 1990 Sex Assigned At Not on file [facility] History of Present illness Narrative 01-14-2024 Elsie Razo, FOOD SERVICE WORKER - 01/14/2024 2:10 PM EST Note Date & Type Note Facility 01-14-2024 History of Presen t illness Narrative Reason for Appointment: Patient ID: Agata Lara is a 33 y.o. female who presents for Lump on hip/pelvic area Patient presents today for Acute Visit appointment. Current Medications: has a current medication list which includes the following prescription(s): b complex vitamins, calcitriol, calcium acetate, desiccated beef liver, magnesium glycinate, and mv-min-fe fum-fa-dha. 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 HENT: Negative. Eyes: Negative. Respiratory: Negative. Cardiovascular: Negative. Gastrointestinal: Negative. Genitourinary: Negative. Musculoskeletal: Negative. Skin: Negative. Neurological: Negative. All other systems reviewed and are negative. Hematological: Negative. Endocrine: Negative. Allergic/Immunologic: Negative. Objective Physical Exam Constitutional: Appearance: Normal appearance. She is well-developed. Cardiovascular: Rate and Rhythm: Normal rate and regular rhythm. Pulmonary: Effort: Pulmonary effort is normal. Breath sounds: Normal breath sounds. Abdominal: General: Bowel sounds are normal. There is no distension. Palpations: Abdomen is soft. Tenderness: There is no abdominal tenderness. There is no guarding or rebound. Musculoskeletal: General: No swelling. Normal range of motion. Right lower leg: No edema. Left lower leg: No edema. Neurological: Mental Status: She is alert and oriented to person, place, and time. Skin: General: Skin is warm and dry. Psychiatric: Mood and Affect: Mood normal. Behavior: Behavior normal. Vitals and nursing note reviewed. Exam conducted with a roof bolter operator present. Vitals: Estimated body mass index is 30.25 kg/m as calculated from the following: Height as of 04/25/23: 5' 6 . Weight as of this encounter: 187 lb 6.4 oz. BP: 112/74 No LMP recorded. Assessment/Plan Encounter Diagnosis Name Primary? Left lower quadrant abdominal mass Pt presents with abdominal lump in left lower quadrant. No appreciated hernia. Pt had ultrasound and didn't show anything. Very deep upon palpation. CT ordered. Pt voiced understanding. Documented by Elsie Razo LPN on behalf of: Kim Mcnair DO documented in this encounter [facility] Evaluation note 12-24-2023 Note Date & Type Note Facility 12-24-2023 Evaluation note Encounter Date Diagnosis Assessment Notes Dec, Well adult exam (ICD-10 - Z00.00) We have discussed the necessity of following up with PCP regularly as well as specialists, as needed. Discussed F/U with dentistry and optometry at least yearly. Discussed all preventative measures/ cancer screenings as applicable to this patient. Emphasized the importance of a reduced fat, low carb diet to promote heart health and controlled blood sugars. Reviewed social history and ensured patient is safe within the home today. Pt denies any abuse of alcohol, nicotine, caffeine or recreational drugs. I have ensured patient is of stable mental and physical health today. We have discussed appropriate F/U schedule as well as blood work and vaccinations that apply. All questions answered and patient is sent home pleased, without concerns. Dec, Abdominal mass, LLQ (left lower quadrant) (ICD-10 - R19.04) Called Dr. Mcnair's office to see if they wanted the US done there. They didn't answer. Order sent to [facility] Other Evaluation note 11-22-2023 Note Date & Type Note Facility 11-22-2023 Evaluation note Encounter Date Diagnosis Assessment Notes Nov, Acute mastitis (ICD-10 - N61.0) rx sent, take as directed. otc NSAIDs and cool compresses for pain. encouraged complete emptying of the affected breast (via ongoing , pumping and/or hand expression). massage affected area to help unplug duct. follow up if new/worsening symptoms. pt verbalizes understanding and agrees c tx plan. [facility] Other Evaluation note 11-15-2021 Note Date & Type Note Facility 11-15-2021 Evaluation note Encounter Date Diagnosis Assessment Notes Nov, Contact with and (suspected) exposure to other viral communicable diseases (ICD-10 - Z20.828) Nov, Acute sinusitis, recurrence not specified, unspecified location (ICD-10 - J01.90) Drink plenty fluids, get plenty of rest. Take the antibiotic as prescribed by your physician until gone. Use the Flonase nasal spray as prescribed until your symptoms improve. Take the prednisone as prescribed until gone. Follow-up with your family physician if no improvement in 2 to 3 days Nov, Other Additional time spent conducting pre-visit phone call, screening for symptoms, instructions on social distancing, application and removal of PPE, and cleaning of examination room, equipment and supplies was preformed. Patient education given for testing methodology and results. Patient care instructions given in writting by [facility] document. [facility] Other Evaluation note Note Date & Type Note Facility Evaluation note No Information [facility] Other Evaluation note Note Date & Type Note Facility Evaluation note Diagnosis Left lower quadrant abdominal mass Abdominal or pelvic swelling, mass, or lump, left lower quadrant documented in this encounter [facility] History general Narrative - Reported Note Date & Type Note Facility History general Narrative - Reported Type Surgical History D&C [facility] Other History general Narrative - Reported Note Date & Type Note Facility History general Narrative - Reported Type Medical History History of gastroschisis Surgical History D&C Surgical History DENTAL EXTRACTIONS Hospitalization History SEE SURGICAL HX [facility] Other Summary Purpose Family History No Family History Records FoundNo Family History Records Found Advance Directives No Advanced Directives Records FoundNo Advanced Directives Records Found Reason for Referral Specialty Diagnoses / Procedures Referred By Matthew khalil Referred To Contact Radiology Diagnoses Left lower quadrant abdominal mass Procedures CT abdomen pelvis w and wo IV contrast Kim Mcnair, DO [address] [place] [address] Referral ID Status Reason Start Date Expiration Date V isits Requested Visits Authorized [id number] Pending Review 01/14/2024 07/12/2024 1 1 Additional Source Comments REASON FOR VISIT (unrecogniz ed section and content) Reason Comments Lump on hip/pelvic area INFORMATION SOURCE (unrecogn ized section and content) DATE CREATED AUTHOR 05/10/2023 [facility] DATE CREATED AUTHOR AUTHOR'S ORGANIZ ATION 01/16/2024 [facility] [employer] Care Teams (unrecognized sec tion and content) Wireline Supervisor Relationship Specialty Start Date End Date Lu Quesada MD [address] [place] [id number] PCP - General Family Medicine 04/25/23 Wireline Supervisor Relationship Specialty Start Date End Date Lu Quesada MD [address] [place] [id number] PCP - General Family Medicine 04/25/23 FOR RECORDS PERTAINING TO PATIENTS WHO ARE OR HAVE BEEN ENROLLED IN A CHEMICAL DEPENDENCY/SUBSTANCEABUSE PROGRAM, SOME INFORMATION MAY BE OMITTED. This clinical summary was aggregated from multiple sources. Caution should be exercised in using it in the provision of clinical care. This summary normalizes information from multiple sources, and as a consequence, information in this document may materially change the coding, format and clinical context of patient data. In addition, data may be omitted in some cases. CLINICAL DECISIONS SHOULD BE BASED ON THE PRIMARY CLINICAL RECORDS. [facility]. provides no warranty or guarantee of the accuracy or completeness of information in this document.
== END 2024-01-29 12:02 | disposition home or self-care (01) ==
LOC: CT 12:01
PROVIDERS: PCP Family Medicine; Visit Provider Obstetrics & Gynecology
DX: R19.04 Left lower quadrant abdominal swelling, mass and lump (principal)
CPT/HCPCS: 74178; Q9967